=== PATIENT | female | born 1985 | race Caucasian/White ===

== ENCOUNTER 2019-01-31 21:21 | Emergency (ER) | payer OTHER ==
[2019-01-31 21:31] VITALS: BP 128/81; PULSE 99; TEMP 98.5; BMI 44.6
--- NOTE | 2019-01-31 21:31 | PDOC ---
Rapid Medical Evaluation Time Seen by Provider: 01/31/19 21:26 Medical Evaluation: 01/31/19 21:26 I have performed a brief in-person evaluation of this patient. The patient presents with a chief complaint of: "I was told I have an upper respiratory infection." had negative flu test today Pertinent physical exam findings: +pleuritic chest pain. Lungs CTAB. I have ordered the following: nothing The patient will proceed to the ED for further evaluation. Discharge Disposition - Diagnosis URI (upper respiratory infection) - Referrals - Patient Instructions - Post Discharge Activity
--- NOTE | 2019-01-31 22:47 | PDOC ---
History of Present Illness - General Chief Complaint: Pain Stated Complaint: 2 MONTH PREG, CHEST PAIN Time Seen by Provider: 01/31/19 21:26 - History of Present Illness Initial Comments: 01/31/19 22:45 34 y/o 8 week gravid F with cough and subjective fever at home for 2 days. Seen at an urgent care had a negative flu swab today. However she did say that they just entered the nose with the flu swab the did not go deep inside and she was diagnosed with an upper respiratory infection negative flu presents for evaluation of cough and body aches along with pleuritic chest pain. She states her pleuritic chest pain is sore and achy and was caused by her forceful coughing episodes. Past History - Past Medical History Allergies/Adverse Reactions: Allergies Allergy/AdvReac Type Severity Reaction Status Date / Time No Known Allergies Allergy Verified 01/31/19 22:41 Home Medications: Ambulatory Orders NK [No Known Home Medication] 01/31/19 - Suicide/Smoking/Psychosocial Hx Smoking History: Never smoked Have you smoked in the past 12 months: No Information on smoking cessation initiated: No Hx Alcohol Use: No Drug/Substance Use Hx: No Review of Systems - Review of Systems Constitutional: Yes: Fever HEENTM: Yes: Nose Congestion Respiratory: Yes: Cough. No: Shortness of Breath, Wheezing Cardiac (ROS): Yes: Chest Pain *Physical Exam - Vital Signs Last Vital Signs Temp Pulse Resp BP Pulse Ox 98.5 F 99 H 18 128/81 98 01/31/19 21:26 01/31/19 21:26 01/31/19 21:26 01/31/19 21:26 01/31/19 21:26 - Physical Exam Comments: 01/31/19 22:46 HEAD: NC/AT EYES: Conjuntiva clear Ears: Canals and TM's normal NOSE: No d/c THROAT: Moist mucous membrances, oral pharanx clear, uvula midline NECK: Supple without adenopathy CARDIAC: S1 S2 LUNGS: CTA Full and Equal breath sounds ABDOMEN: Soft NT ND MS: Full ROM in all joints without edema NEUROLOGIC: No gross sensory or motor deficits, NVID SKIN: Normal color and temperature no lesions or rashes Moderate Sedation - Procedure Monitoring Vital Signs: Procedure Monitoring Vital Signs Temperature 98.5 F 01/31/19 21:26 Pulse Rate 99 H 01/31/19 21:26 Respiratory Rate 18 01/31/19 21:26 Blood Pressure 128/81 01/31/19 21:26 O2 Sat by Pulse Oximetry (%) 98 01/31/19 21:26 Medical Decision Making - Medical Decision Making 01/31/19 22:46 Repeat flu swab was done properly. D-dimer at this point is useless she's , her extremities are soft and nontender I do not suspect a DVT however a pulmonary embolism does remain in the differential. She does have a history of thyroid goiter which was benign and removed. She does take medication for thyroid and she is also a diabetic. She is obese and . I will discuss this case with ER attending and sign her out to the main emergency room. *DC/Admit/Observation/Transfer Diagnosis at time of Disposition: URI (upper respiratory infection) - Referrals Referrals: Jackelyn Turner [Primary Care Provider] - - Patient Instructions - Post Discharge Activity
[2019-01-31] MEDS ORDERED: OSELTAMIVIR PHOSPHATE 75 MG CAPSULE PO ONE (23:31)
--- NOTE | 2019-01-31 23:38 | PDOC ---
*Physical Exam - Vital Signs Last Vital Signs Temp Pulse Resp BP Pulse Ox 98.5 F 99 H 18 128/81 98 01/31/19 21:26 01/31/19 21:26 01/31/19 21:26 01/31/19 21:26 01/31/19 21:26 - Physical Exam General Appearance: No: Apparent Distress Respiratory/Chest: positive: Lungs Clear, Normal Breath Sounds. negative: Chest Tender, Respiratory Distress Cardiovascular: positive: Regular Rhythm, Regular Rate, S1, S2. negative: Murmur Gastrointestinal/Abdominal: positive: Normal Bowel Sounds, Soft. negative: Tender Integumentary: positive: Normal Color Neurologic: positive: Alert, Normal Mood/Affect Medical Decision Making - Medical Decision Making Patient endorsed to me by SOFIA Choudhary Briefly, this is a 34 y/o F hx of DM, goiter s/p thyroidectomy presenting with DEE, cough, chills, body aches, congestion, CP only with coughing since yesterday. Patient was seen in UC today and was told she was negative for flu. Denies sob, abd pain, n/v, vaginal bleeding. Patient positive for flu on testing here Will treat as within window frame and patient Will give first dose in ER Of note, patient has had ultrasound for her done 5 days ago as outpatient by her [employer] and everything was normal per patient 01/31/19 23:33 *DC/Admit/Observation/Transfer Diagnosis at time of Disposition: Influenza - Discharge Dispostion Disposition: HOME Condition at time of disposition: Stable Decision to Admit order: No - Prescriptions Prescriptions: Oseltamivir Phosphate [Tamiflu] 75 mg PO BID #9 capsule - Referrals Referrals: Jackelyn Turner [Primary Care Provider] - 2 Days - Patient Instructions Printed Discharge Instructions: DI for Influenza -- Adult Additional Instructions: Thank you for choosing [facility]. It was a pleasure taking care of you. You were found to have the flu Take Tamiflu twice a day The flu can spread by cough Be sure to cover mouth when coughing; wash hands Return to the Emergency Department if your symptoms worsen or persist or have other concerning symptoms. - Post Discharge Activity
[2019-01-31] MEDS ORDERED: OSELTAMIVIR PHOSPHATE 75 MG CAPSULE ONE (23:39)
== END 2019-01-31 23:56 | disposition home or self-care (01) ==
LOC: JER 21:21 → JERFT 21:21 → JER 23:56
DX: O26.891 Other specified pregnancy related conditions, first trimester (principal); O98.511 Other viral diseases complicating pregnancy, first trimester; J09.X2 Influenza due to identified novel influenza A virus with other respiratory manifestations; O99.281 Endocrine, nutritional and metabolic diseases complicating pregnancy, first trimester; O24.911 Unspecified diabetes mellitus in pregnancy, first trimester; E05.00 Thyrotoxicosis with diffuse goiter without thyrotoxic crisis or storm; Z3A.08 8 weeks gestation of pregnancy
CPT/HCPCS: 87804; 99281-25